=== PATIENT | female | born 1980 | race Hispanic/Latino ===

== ENCOUNTER 2018-04-29 20:25 | Emergency (ER) | payer SELFPAY ==
[2018-04-29 21:44] LABS: Basophils # (Auto) 0.1 K/mm3 (0.0-0.1); Basophils % (Auto) 0.5 % (0.0-1.8); Eosinophils # (Auto) 0.2 K/mm3 (0.0-0.4); Eosinophils % (Auto) 1.4 % (0.0-4.3); Hematocrit 39.4 % (30.3-42.9); Hemoglobin 13.1 gm/dl (10.1-14.3); Lymphocytes # (Auto) 3.3 K/mm3 (1.2-5.4); Lymphocytes % (Auto) 24.6 % (13.4-35.0); Mean Corpuscular HGB Conc 33 % (30-34); Mean Corpuscular Hemoglobin 28 pg (28-32); Mean Corpuscular Volume 84 fl (79-97); Monocytes # (Auto) 1.1 K/mm3 (0.0-0.8); Monocytes % (Auto) 8.5 % (0.0-7.3); Platelet Count 331 K/mm3 (140-440); Red Blood Count 4.71 M/mm3 (3.65-5.03); Red Cell Distribution Width 13.9 % (13.2-15.2)
[2018-04-29 22:10] LABS: BUN/Creatinine Ratio 28; Blood Urea Nitrogen 17 mg/dL (7-17); Calcium 8.8 mg/dL (8.4-10.2); Hemolysis Index 11
[2018-04-29] MEDS ORDERED: NACL 0.9% 1000 ML 1,000 ML IV ONE (22:27)
--- NOTE | 2018-04-29 22:49 | Cat Scan Report ---
FINAL REPORT PROCEDURE: CT HEAD/BRAIN WO CON TECHNIQUE: Computerized tomography of the head was performed without contrast material. HISTORY: S/P fall/ AMS COMPARISON: No prior studies are available for comparison. FINDINGS: Skull and scalp: Normal. Paranasal sinuses: Normal. Ventricles and subarachnoid spaces: Normal. Cerebrum: No evidence of hemorrhage, acute infarction or mass . Cerebellum and brainstem: No evidence of hemorrhage, acute infarction or mass. Vasculature: Normal. Comments: None. IMPRESSION: Normal Examination
[2018-04-29 23:16] LABS: Bacteria,Urine 1+ /HPF (Negative); Bilirubin,Urine NEG (Negative); Blood,Urine NEG (Negative); Color,Urine Yellow (Yellow); Mucus,Urine FEW /HPF; Protein,Urine <15 mg/dL mg/dL (Negative); Urobilinogen,Urine < 2.0 mg/dL (<2.0)
[2018-04-29 23:19] LABS: RBC,Urine < 1.0 /HPF (0.0-6.0)
[2018-04-29 23:26] LABS: Amphetamine Screen,Urine PRESUMPTIVE NEGATIVE; Benzodiazepines Screen,Urine PRESUMPTIVE NEGATIVE; Cannabinoid Screen,Urine PRESUMPTIVE NEGATIVE; Cocaine Screen,Urine PRESUMPTIVE NEGATIVE; Methadone Screen,Urine PRESUMPTIVE NEGATIVE; Opiate Screen,Urine PRESUMPTIVE NEGATIVE
--- NOTE | 2018-04-30 00:02 | Emergency Department Report ---
HPI - General Chief Complaint: Altered Mental Status Time Seen by Provider: 04/29/18 22:02 - HPI HPI: The patient is a 37-year-old female with a significant history of anxiety, panic attacks, and episodes of syncope followed by decrease activity and communication, per the patient's who is present at bedside. Per the patient's , the patient passed out while at a [employer] at this. Lightheadedness extending up from a table. She subsequently exhibited decreased interaction and engagement. The patient admits to an episode of severe lightheadedness constant for minutes on a [employer] [place] earlier today, worse with standing. The patient denies fever, head injury, headache, neck pain , neck stiffness, vision or hearing changes, smell or taste changes, paresthesias, facial drooping, slurred speech, seizure-like activity, urine or bowel incontinence or retention, or other focal neurological deficit. ED Past Medical Hx - Past Medical History Previous Medical History?: Yes Hx Psychiatric Treatment: Yes (depression, panic attack) - Surgical History Past Surgical History?: Yes Additional Surgical History: uterus sx - Social History Smoking Status: Former Smoker Substance Use Type: None - Medications Home Medications: Home Medications Medication Instructions Recorded Confirmed Last Taken Type Cyclobenzaprine [Flexeril 10mg] 10 mg PO TID PRN #14 tablet 07/20/14 Unknown Rx HYDROcodone/APAP 5-325 [[place] 1 each PO Q6HR PRN #14 tablet 07/20/14 Unknown Rx 5/325] Ibuprofen [Motrin 800 MG tab] 800 mg PO Q8H #30 tablet 07/20/14 Unknown Rx Cyclobenzaprine HCl [Flexeril 5 MG 5 mg PO Q8HR PRN #12 tab 04/30/18 Unknown Rx TAB] ED Review of Systems ROS: Stated complaint: ANXIETY Other details as noted in HPI Constitutional: reports dizziness and syncope denies: fever ENT: denies: throat or neck pain Respiratory: denies: cough, shortness of breath Cardiovascular: denies: chest pain Endocrine: denies unexplained weight loss or gain Gastrointestinal: denies: abdominal pain, nausea Genitourinary: denies: dysuria Musculoskeletal: denies: leg swelling Skin: denies: rash Neurological: denies: headache Hematological/Lymphatic: denies: easy bleeding or easy bruising Psych: denies sadness or hopelessness Physical Exam - Physical Exam Vital Signs: Vital Signs 08/01/18 08/01/18 20:45 21:12 Temperature 98.4 F 98 F Pulse Rate 111 H 109 H Respiratory 20 20 Rate Blood Pressure 130/67 130/67 O2 Sat by Pulse 99 98 Oximetry Physical Exam: General: well-nourished, well-developed, no acute distress Head: Normocephalic, atraumatic Eyes: normal sclera, EOMI, PERRL ENT: Mucous membranes are pale and dry Neck: No neck stiffness, no cervical adenopathy Respiratory: Breath sounds equal bilaterally, no wheezing, rales, or rhonchi Cardio: S1 and S2 present, no murmurs, rubs, gallops, capillary refill is delayed Abdomen: Normoactive bowel sounds, soft abdomen, no tenderness Chest WALL/Back: No tenderness to palpation of the chest wall, no CVA tenderness with percussion Musc: No pitting edema Skin: No rash Neuro: Alert oriented 3, patient cooperative, normal speech, no facial droop, no sensation of motor deficits on neuro exam, reflexes are 2+ and symmetric on DTR testing bilaterally, Babinski is downgoing Psych: Normal affect ED Course Vital Signs 04/29/18 04/29/18 20:45 21:12 Temperature 98.4 F 98 F Pulse Rate 111 H 109 H Respiratory 20 20 Rate Blood Pressure 130/67 130/67 O2 Sat by Pulse 99 98 Oximetry ED Medical Decision Making - Lab Data Result diagrams: 04/29/18 21:25 04/29/18 21:25 - Medical Decision Making The patient was seen and examined by myself. The patient is placed on a monitor worker and continuous pulse ox. On initial evaluation, the patient was found to be in no distress. Evaluation orders are placed. IV access is established and the patient is given 1 L normal saline fluid bolus for treatment of her dehydration. Lab results are unrevealing. CT scan the head is negative for acute intracranial disease process. The patient was reevaluated and reported that their symptoms were markedly improved. The patient is stable for discharge with outpatient follow-up. The patient is given follow-up and return instructions. The patient expressed understanding and agreed with the plan. The patient is discharged in stable condition. Critical care attestation.: If time is entered above; I have spent that time in minutes in the direct care of this critically ill patient, excluding procedure time. ED Disposition Clinical Impression: Dehydration, Orthostatic syncope Altered mental status, unspecified Qualifiers: Altered mental status type: unspecified Qualified Code(s): R41.82 - Altered mental status, unspecified Disposition: DC-01 TO HOME OR SELFCARE Is pt being admited?: No Does the pt Need Aspirin: No Condition: Stable Instructions: Syncope (ED), Dehydration (ED), Anxiety (ED) Referrals: SANG MONTENEGRO MD [Staff Physician] - 3-5 Days Time of Disposition: 23:58
[2018-04-30 00:08] VITALS: BP 117/71
== END 2018-04-30 00:45 | disposition home or self-care (01) ==
LOC: ED 20:25
DX: E86.0 Dehydration (principal); R55 Syncope and collapse; R41.82 Altered mental status, unspecified; F32.9 Major depressive disorder, single episode, unspecified; F41.9 Anxiety disorder, unspecified; F41.0 Panic disorder [episodic paroxysmal anxiety]; Z87.891 Personal history of nicotine dependence
CPT/HCPCS: 36415; 70450; 80048; 80307; 81001; 82550; 84439; 84443; 84703; 85025; 93005; 93010; 96360; 99285; G0480; J7030; 80320

== ENCOUNTER 2018-11-17 08:14 | Observation (INO) | payer MEDICAID ==
[2018-11-10 09:40] LABS: Basophils % (Auto) 0.4 % (0.0-1.8); Eosinophils # (Auto) 0.2 K/mm3 (0.0-0.4); Eosinophils % (Auto) 1.9 % (0.0-4.3); Hematocrit 37.9 % (30.3-42.9); Hemoglobin 12.7 gm/dl (10.1-14.3); Lymphocytes # (Auto) 2.6 K/mm3 (1.2-5.4); Lymphocytes % (Auto) 31.2 % (13.4-35.0); Mean Corpuscular HGB Conc 34 % (30-34); Mean Corpuscular Volume 85 fl (79-97); Monocytes # (Auto) 0.9 K/mm3 (0.0-0.8); Monocytes % (Auto) 10.7 % (0.0-7.3); Platelet Count 313 K/mm3 (140-440); Red Blood Count 4.47 M/mm3 (3.65-5.03); Red Cell Distribution Width 13.8 % (13.2-15.2)
--- NOTE | 2018-11-10 09:53 | Anesthesia Consultation ---
Anesthesia Consult and Med Hx Date of service: 11/17/18 - Airway Anesthetic Teeth Evaluation: Good ROM Head & Neck: Adequate Mental/Hyoid Distance: Adequate Mallampati Class: Class IV Intubation Access Assessment: Possibly Difficult (LIMITED MOUTH OPENING) - Pre-Operative Health Status ASA Pre-Surgery Classification: ASA2 Proposed Anesthetic Plan: General Nerve Block: TAP - Central Nervous System Hx Neuromuscular Disorder: No Hx Seizures: Yes ("staring" Neuro w/u neg per pt; "seizure" believed to be from psych issues) Hx Psychiatric Problems: Yes (Anxiety/Depression; Abnormal chronic migraines) - Other Systems Hx Alcohol Use: Yes (Occas) Hx Cancer: No Hx Obesity: Yes
[~2018-11-17 08:14] MED LIST: LACTATED RINGERS 1,000 ML IV SCH; NEURONTIN PO NR; TYLENOL PO NR
--- NOTE | 2018-11-17 09:32 | History and Physical Report ---
History of Present Illness Date of examination: 11/17/18 Chief complaint: Symptomatic uterine fibroids History of present illness: Patient is a 37-year-old white female LMP 11/04/2018 who presents for surgical evaluation treatment of symptomatic uterine fibroids. Patient complains of pelvic pain and prolonged heavy vaginal bleeding and endometrial biopsy was benign. Pelvic ultrasound showed the uterus measures 8.5 x 6 x 5 cm with 2 small fibroids and a Left ovarian cyst - CA125 was normal (30). She desires ovarian conservation, and is therefore scheduled for a Robotic-Assisted Total Hysterectomy with bilateral salpingectomy and left ovarian cystectomy. Past History Past Medical History: seizure, migraines, other (depression) Past Surgical History: section [employer] History: fibroids, other (left ovarian cyst) Family/Genetic History: none Social history: no significant social history, Medications and Allergies Allergies Allergy/AdvReac Type Severity Reaction Status Date / Time coconut Allergy Anaphylaxis Verified 11/09/18 15:09 Home Medications Medication Instructions Recorded Confirmed Last Taken Type Phentermine HCl [Adipex-P] 37.5 mg PO QAM 11/09/18 11/09/18 11/06/18 History Sertraline [Zoloft] 100 mg PO QDAY 11/09/18 11/17/18 11/16/18 History risperiDONE 0.5 mg PO HS 11/09/18 11/17/18 11/16/18 History traZODone [Desyrel] 50 mg PO QHS 11/09/18 11/17/18 11/16/18 History Benztropine [Cogentin] 0.5 mg PO 11/17/18 11/16/18 History Active Meds: Active Medications Lactated Ringer's (Lactated Ringers) 1,000 mls @ 125 mls/hr IV DIRECT SERJIO Review of Systems All systems: negative - Vital Signs Vital signs: Vital Signs Temp Pulse Resp BP Pulse Ox 98.5 F 66 20 106/64 98 11/10/18 09:15 11/10/18 09:15 11/10/18 09:15 11/10/18 09:15 11/10/18 09:15 Temp Pulse Resp BP Pulse Ox 98.5 F 66 20 106/64 98 11/10/18 09:15 11/10/18 09:15 11/10/18 09:15 11/10/18 09:15 11/10/18 09:15 - Physical Exam Breasts: Positive: deferred Cardiovascular: Regular rate Lungs: Positive: Clear to auscultation Abdomen: Positive: normal appearance Genitourinary (Female): Positive: normal external genitalia Vagina: Positive: normal moisture Uterus: Positive: enlarged Adnexa: left: mass Extremities: Positive: normal Results Result Diagrams: 11/10/18 09:25 All other labs normal. Ultrasound: report reviewed Assessment and Plan - Patient Problems (1) Uterine fibroid Onset Date: 11/17/18 Current Visit: Yes Status: Acute Qualifiers: Uterine leiomyoma location: intramural and submucous Qualified Code(s): D25.1 - Intramural leiomyoma of uterus; D25.0 - Submucous leiomyoma of uterus Plan to address problem: A: Symptomatic uterine fibroids Menorrhagia Left ovarian cyst P: Admit for a Robotic-Assisted Total Hysterectomy with bilateral salpingectomy, and left ovarian cystectomy. (2) Menorrhagia with irregular cycle Onset Date: 11/17/18 Current Visit: Yes Status: Acute (3) Left ovarian cyst Onset Date: 11/17/18 Current Visit: Yes Status: Acute
[2018-11-17] MEDS ORDERED: ANCEF/STERILE WATER 2 GM/20 ML 2 GM/20 ML SYRINGE IV SCH (10:00)
[2018-11-17] MEDS ORDERED: NEURONTIN PO NR (11:06)
[2018-11-17] MEDS ORDERED: TYLENOL PO NR (11:07)
[2018-11-17] MEDS ORDERED: PEPCID IV NR (11:17)
[2018-11-17] MEDS ORDERED: DECADRON ONE ×2 (11:55→13:43)
[2018-11-17] MEDS ORDERED: MARCAINE 0.25% INFILTRATI ONE (11:55)
[2018-11-17] MEDS ORDERED: SUBLIMAZE ONE ×2 (11:56→13:43)
[2018-11-17] MEDS ORDERED: VERSED ONE (11:56)
[2018-11-17] MEDS ORDERED: NEOSPORIN GU IR ONE ×2 (13:26→14:18)
[2018-11-17] MEDS ORDERED: QUELICIN ONE (13:43)
[2018-11-17] MEDS ORDERED: BLOXIVERZ ONE (13:43)
[2018-11-17] MEDS ORDERED: ROMAZICON IV ONE (13:43)
[2018-11-17] MEDS ORDERED: ROBINUL ONE (13:43)
[2018-11-17] MEDS ORDERED: XYLOCAINE MPF 2% ONE (13:43)
[2018-11-17] MEDS ORDERED: ZOFRAN ONE (13:43)
[2018-11-17] MEDS ORDERED: DIPRIVAN 10 MG/ML IV ONE (13:44)
[2018-11-17] MEDS ORDERED: NACL 0.9% IR ONE ×2 (14:18→14:19)
[2018-11-17] MEDS ORDERED: NEO SYNEPHRINE/NS Syringe(OR USE) IV ONE (15:19)
[2018-11-17] MEDS ORDERED: TORADOL ONE (15:19)
--- NOTE | 2018-11-17 15:29 | Operative Report ---
Operative Report Operative Report: Date of procedure: 11/17/2018 Pre-operative diagnosis: 1. Symptomatic uterine fibroids 2. Menorrhagia 3. Left ovarian cyst Post-operative diagnosis: Same Procedure name(s): 1. Robotic-assisted total hysterectomy 2. Bilateral salpingectomy 3. Left ovarian cystectomy Surgeon: Haroldo Tomas MD Skimmer Reverberatory: Cassandra Vergara CSA Anesthesia: SWEETIE Block followed by general endotracheal intubation EBL: 100 mL Findings: 8-10 week size uterus with a large left ovarian cyst and normal right ovary. Normal tubes bilaterally. Normal appendix. Procedure: After the patient's first correctly identified she was prepped and draped in the usual sterile fashion and placed in the dorsolithotomy position. The bladder was first catheterized using Gonzales catheter and the speculum was placed in the vagina and the anterior lip of the cervix was grasped using a single-tooth tenaculum, and the medium Vesicare cup was placed. The tenaculum and speculum was then removed from the vagina and attention was then turned to the abdomen. The skin knife was used to make a small incision approximately 5 cm above the umbilicus through which a 12 mm trocar was placed under direct visualization. After adequate amount of abdominal insufflation visualization of the pelvic organs found the uterus to be enlarged and the tubes and ovaries were found to be normal bilaterally. The left ovary was enlarged and cystic. A right and left paramedian incision was made through which the 8 mm trochars were placed under direct visualization and a 5 mm trocar was placed in the right upper quadrant. The patient was then placed in steep Trendelenburg positioning and the robot was docked on the patient's left side. After all the robotic ports were connected and adequate functioning of the robotic arms were tested the surgeon then proceeded to the console to begin the hysterectomy. First the left round ligament was grasped, cauterized and cut, the left utero- ovarian ligaments were grasped, cauterized and cut, and the left fallopian tube also grasped, cauterized and cut along the mesosalpinx, thus freeing the left ovary from the left uterine sidewall. The left ovarian cyst was excised and placed in the cul-de-sac for removal later. The same procedure was performed on the right. The right round ligament was grasped, cauterized and cut, the right utero-ovarian ligaments were grasped, cauterized and cut, and the right fallopian tube also grasped, cauterized and cut along the mesosalpinx thus freeing the right ovary from the right uterine sidewall. The bladder flap was taken down anteriorly and the uterine vessels were grasped, cauterized and cut bilaterally. The cardinal ligaments were sequentially grasped, cauterized and cut down to the level of the uterosacral ligaments. At this time the posterior colpotomy was performed over the Vcare cup, and the cervix was circumscribed beginning posteriorly and meeting anteriorly until the cervix was freed. The cervix and uterus was then removed through the vagina and sent to pathology. The left ovarian cyst was also removed and sent to pathology. The vaginal cuff was then closed using 2-0 Vloc suture in a running fashion. Irrigation was then performed and after good hemostasis was achieved the procedure was considered complete. The Tisseel sealant was then sprayed across the vaginal cuff site, and after excellent hemostasis was assured Interceed was placed across the vaginal cuff site. All instruments were then removed from the abdomi nal cavity. And each incision was closed using 0 Vicryl suture in a [id number] configuration on the fascia followed by 4-0 Monocryl suture in a sub-cuticular fashion on the skin. Each incision was also infiltrated using 0.5% Marcaine solution. The vaginal pack was removed. The patient tolerated the procedure well and was transported to the recovery room in stable condition.
[2018-11-17] MEDS ORDERED: PHENERGAN PR PRN (15:30)
[2018-11-17] MEDS ORDERED: TYLENOL PO PRN ×2 (15:30→18:48)
[2018-11-17] MEDS ORDERED: ZOFRAN IV PRN ×2 (15:30→18:48)
[2018-11-17] MEDS ORDERED: NORCO 5/325 PO PRN ×2 (15:30→18:48)
[2018-11-17] MEDS ORDERED: NARCAN 0.4 MG/1 ML IV PRN ×2 (15:30→18:48)
[2018-11-17] MEDS ORDERED: MILK OF MAGNESIA PO PRN ×2 (15:30→18:48)
[2018-11-17] MEDS ORDERED: PERCOCET 5/325 PO PRN ×2 (15:30→18:48)
[2018-11-17] MEDS ORDERED: D5LR 1,000 ML IV SCH ×2 (16:00→19:00)
[2018-11-17] MEDS ORDERED: TORADOL IV SCH (16:00)
[2018-11-17] MEDS ORDERED: DILAUDID IV PRN (16:11)
[2018-11-17] MEDS ORDERED: SUBLIMAZE IV PRN (16:11)
--- NOTE | 2018-11-17 16:15 | Anesthesia Day of Surgery ---
Anesthesia Day of Surgery - Day of Surgery Patient Examined: Yes Patient H&P Reviewed: Yes Patient is NPO: Yes Beta Blockers: No Cardiac Clearance: No Pulmonary Clearance: No Sridhar's Test: N/A (All questions/concerns addressed; chart reviewed and consented for regional block.)
[2018-11-17] MEDS ORDERED: D5LR 1,000 ML IV ONE (16:33)
[2018-11-17] MEDS ORDERED: REGLAN PO PRN (18:48)
[2018-11-17] MEDS ORDERED: ANCEF/NS 1 GM/50 ML 1 GM/50 ML BAG IV SCH (19:00)
[2018-11-17] MEDS: TORADOL IV SCH (19:42)
[2018-11-17] MEDS: COLACE PO SCH (21:19)
[2018-11-17] MEDS: ANCEF/NS 1 GM/50 ML 1 GM/50 ML BAG IV SCH (21:20)
[2018-11-17] MEDS ORDERED: COLACE PO SCH (22:00)
[2018-11-18] MEDS: ANCEF/NS 1 GM/50 ML 1 GM/50 ML BAG IV SCH (04:02)
[2018-11-18] MEDS: TORADOL IV SCH ×2 (04:03→09:17)
[2018-11-18 06:16] LABS: Hematocrit 39.1 % (30.3-42.9); Hemoglobin 12.9 gm/dl (10.1-14.3)
[2018-11-18] MEDS: COLACE PO SCH (09:26)
--- NOTE | 2018-11-18 09:34 | Progress Note ---
Assessment and Plan - Patient Problems (1) Uterine fibroid Onset Date: 11/17/18 Current Visit: Yes Status: Resolved Qualifiers: Uterine leiomyoma location: intramural and submucous Qualified Code(s): D25.1 - Intramural leiomyoma of uterus; D25.0 - Submucous leiomyoma of uterus (2) Menorrhagia with irregular cycle Onset Date: 11/17/18 Current Visit: Yes Status: Resolved (3) Left ovarian cyst Onset Date: 11/17/18 Current Visit: Yes Status: Resolved (4) Status post robot-assisted surgical procedure Onset Date: 11/18/18 Current Visit: Yes Status: Resolved Plan to address problem: A: S/P RATH with Left Ovarian cystectomy - POD #1 Doing well P: May go home today. Subjective - Subjective Date of service: 11/18/18 Principal diagnosis: s/p RATH - POD #1 Interval history: Patient is s/p a Robotic-Assisted Total Hysterectomy with bilateral salpingectomy and left ovarian cystectomy, and feeling well. She is tolerating a liquid diet without nausea or vomiting, ambulating and voiding without difficulty. Patient reports: appetite normal, voiding normally, pain well controlled, ambulating normally, no dizzy ambulation, no flatus, no nauseated Objective - Vital Signs Latest vital signs: Vital Signs Temp Pulse Pulse Resp Resp BP BP 11/18/18 08:16 98.1 F 74 18 91/58 11/18/18 05:16 98.2 F 82 18 105/62 11/17/18 23:45 97.5 F L 66 18 105/57 11/17/18 20:51 98.0 F 72 20 103/61 11/17/18 19:42 18 18 11/17/18 17:00 97.7 F 75 18 101/62 11/17/18 16:55 76 18 11/17/18 16:30 72 13 96/57 11/17/18 16:15 70 10 L 100/60 11/17/18 16:00 72 14 101/53 11/17/18 15:45 72 15 104/47 11/17/18 15:40 81 16 104/55 11/17/18 15:35 89 13 98/51 11/17/18 15:30 97.1 F L 84 16 100/53 11/17/18 13:30 72 14 111/60 11/17/18 13:25 73 15 107/55 11/17/18 13:20 71 12 101/54 11/17/18 13:15 76 14 104/60 11/17/18 13:10 79 12 109/52 11/17/18 13:05 93 H 14 106/56 11/17/18 13:00 83 12 103/58 11/17/18 12:55 78 11 L 101/55 11/17/18 12:50 73 12 101/55 11/17/18 12:45 69 14 104/52 11/17/18 12:40 74 16 102/50 11/17/18 12:35 75 13 104/49 11/17/18 12:30 75 19 104/71 11/17/18 12:25 79 12 102/67 11/17/18 12:20 80 14 112/63 11/17/18 12:15 83 20 103/59 11/17/18 12:10 77 15 100/68 11/17/18 12:05 81 20 103/66 11/17/18 10:57 98.1 F 76 14 108/73 11/17/18 10:49 98.1 F 76 14 108/73 Pulse Ox 11/18/18 08:16 96 11/18/18 05:16 96 11/17/18 23:45 95 11/17/18 20:51 97 11/17/18 19:42 11/17/18 17:00 99 11/17/18 16:55 11/17/18 16:30 95 11/17/18 16:15 94 11/17/18 16:00 95 11/17/18 15:45 98 11/17/18 15:40 98 11/17/18 15:35 10 L 11/17/18 15:30 97 11/17/18 13:30 96 11/17/18 13:25 96 11/17/18 13:20 97 11/17/18 13:15 97 11/17/18 13:10 97 11/17/18 13:05 98 11/17/18 13:00 97 11/17/18 12:55 97 11/17/18 12:50 97 11/17/18 12:45 96 11/17/18 12:40 97 11/17/18 12:35 97 11/17/18 12:30 97 11/17/18 12:25 97 11/17/18 12:20 98 11/17/18 12:15 99 11/17/18 12:10 100 11/17/18 12:05 99 11/17/18 10:57 99 11/17/18 10:49 99 Intake and Output 11/17/18 11/18/18 11/18/18 22:59 06:59 14:59 Intake Total 870 320 240 Output Total 790 2300 Balance 80 -1979 240 Intake: IV 750 ANCEF/NS 1 GM/50 ML 1 gm 50 In 50 ml @ 100 mls/hr IV Q8H [facility] Rx#:[id number] Oral 120 320 Intake, Free Water 240 Output: Urine 790 2300 Indwelling Catheter 200 600 Uretheral (Gonzales) 400 1700 Other: Total, Intake Amount 120 120 Total, Output Amount 200 100 Voiding Method Indwelling Catheter Indwelling Catheter # Voids Indwelling Catheter 1 - Exam Cardiovascular: Present: Regular rate Lungs: Present: Clear to auscultation Abdomen: Present: normal appearance, soft Extremities: Present: normal Incision: Present: normal, dry, intact - Labs Labs: Laboratory Tests 11/10/18 11/17/18 11/18/18 09:25 10:20 06:03 WBC 8.2 RBC 4.47 Hgb 12.7 12.9 Hct 37.9 39.1 MCV 85 MCH 29 MCHC 34 RDW 13.8 Plt Count 313 Lymph % (Auto) 31.2 [place] % (Auto) 10.7 H Eos % (Auto) 1.9 Baso % (Auto) 0.4 Lymph # 2.6 [place] # 0.9 H Eos # 0.2 Baso # 0.0 Seg Neutrophils % 55.8 Seg Neutrophils # 4.6 Blood Type O POSITIVE Antibody Screen Negative
--- NOTE | 2018-11-18 10:15 | Discharge Summary ---
Providers - Providers Date of Admission: 11/17/18 15:30 Date of discharge: 11/18/18 Attending physician: ANTONIO BURTON Primary care physician: CARLTON SHARP Hospitalization Reason for admission: other (Symptomatic uteine fibroids; Menorrhagia; Left ovarian cyst) Procedure: other (Robotic Assisted Total Hysterectomy with Bilateral Salpingectomy and Left ovarian cystectomy) Incision: normal, dry, intact Other procedures: none complications: none Discharge diagnosis: other (s/p RATH with Left ovarian cystectomy) Hospital course: Patient is a 37-year-old white female LMP 11/04/2018 who presented for surgical evaluation treatment of symptomatic uterine fibroids. Patient complained of pelvic pain and prolonged heavy vaginal bleeding and endometrial biopsy was benign. Pelvic ultrasound showed the uterus measures 8.5 x 6 x 5 cm with 2 small fibroids and a Left ovarian cyst - CA125 was normal (30). She desired ovarian conservation, and underwent an uncomplicated Robotic-Assisted Total Hysterectomy with bilateral salpingectomy and left ovarian cystectomy. By POD #1 she was tolerating a reg diet without nausea or vomiting, ambulating and voiding without difficulty. She was therefore discharged to home on POD #1 in stable condition. Condition at discharge: Good Disposition: DC-01 TO HOME OR SELFCARE - Discharge Diagnoses (1) Uterine fibroid Status: Resolved Qualifiers: Uterine leiomyoma location: intramural and submucous Qualified Code(s): D 25.1 - Intramural leiomyoma of uterus; D25.0 - Submucous leiomyoma of uterus (2) Menorrhagia with irregular cycle Status: Resolved (3) Left ovarian cyst Status: Resolved (4) Status post robot-assisted surgical procedure Status: Resolved Plan - Discharge Medications Prescriptions: HYDROcodone/APAP 5-325 [[place] 5-325 mg TAB] 1 each PO Q6HR PRN #30 tablet PRN Reason: Pain, Moderate (4-6) Ibuprofen [Motrin] 800 mg PO Q8HR PRN #30 tablet PRN Reason: Pain, Mild (1-3) - Provider Discharge Summary Activity: routine, no sex for 6 weeks, no heavy lifting 4 weeks, no strenuous exercise Diet: routine Instructions: routine Additional instructions: [] Smoking cessation referral if applicable(refer to patient education folder for contact #) [] Refer to [facility] Booklet Call your doctor immediately for: * Fever > 100.5 * Heavy vaginal bleeding ( >1 pad per hour) * Severe persistent headache * Shortness of breath * Reddened, hot, painful area to leg or breast * Drainage or odor from incision. * Keep incision clean and dry at all times and follow doctor's instructions regarding bathing/showering - Follow up plan Follow up: CARLTON SHARP MD [Primary Care Provider] - 7 Days ANTONIO BURTON MD [Staff Physician] - 14 Days
[2018-11-18 12:31] VITALS: BP 98/47
== END 2018-11-18 15:00 | disposition home or self-care (01) ==
LOC: OR 08:14 → OB 15:30
PROVIDERS: ADMIT Obstetrics & Gynecology; ATTEND Obstetrics & Gynecology
DX: D25.9 Leiomyoma of uterus, unspecified (principal); N93.8 Other specified abnormal uterine and vaginal bleeding; N83.209 Unspecified ovarian cyst, unspecified side; Z98.890 Other specified postprocedural states
CPT/HCPCS: 36415; 58571; 64450; 81025; 85014; 85018; 85025; 86850; 86900; 86901; 88307; 96365; 96366; 96375; 96376; A4217; C1765; C9250; G0378; J0330; J0690; J1100; J1885; J2250; J2370; J2405; J2704; J2710; J3010; J7120; J7121; S2900